=== PATIENT | male | born 1965 | race Caucasian/White ===

== ENCOUNTER 2018-04-07 18:33 | Emergency (ER) | payer SELFPAY ==
[~2018-04-07] VITALS: Ht 175.3 cm; Wt 87.0 kg
[2018-04-07 18:38] VITALS: BP 103/42
== END 2018-04-07 20:58 | disposition left against medical advice (07) ==
LOC: ER 18:33
DX: Z53.21 Procedure and treatment not carried out due to patient leaving prior to being seen by health care provider (principal)